=== PATIENT | male | born 1955 | race Caucasian/White ===

== ENCOUNTER 2017-11-19 11:06 | Emergency (ER) | payer OTHER ==
[~2017-11-19] VITALS: Ht 177.8 cm; Wt 126.0 kg
[~2017-11-19 11:06] MED LIST: ATOR10TA82 PO; BNC/40 PO; CLB/200 PO; FLX10 PO; OMEP20TA PO; RXC5 PO
[2017-11-19 11:10] VITALS: Ht 177.8 cm; Wt 126.0 kg
--- NOTE | 2017-11-19 11:32 | EMERGENCY ROOM VISIT NOTE ---
History Report prepared by Sung: Breonna Price Under the Supervision of: Dr. Hugo Lopez D.O. First contact with patient: 11:24 Chief Complaint: ABDOMINAL PAIN Stated Complaint: ABDOMINAL PAIN History of Present Illness The patient is a 62 year old male who presents to the Emergency Room with complaints of intermittent left sided abdominal pain beginning last night. The patient went to a walk in clinic this morning who referred him to come into the ED. His pain worsens with movement. The patient has a history of diverticulitis , hypertension, and diabetes. He denies any rectal bleeding, dark stools, fever , nausea, chest pain, shortness of breath, or vomiting. The patient is a smokeless tobacco user. Source of History: patient Onset: last night Position: abdomen Timing: intermittent Modifying Factors (Worsening): movement Associated Symptoms: + abdominal pain, No fevers, No chest pain, No SOB, No nausea, No vomiting Review of Systems See HPI for pertinent positives & negatives. A total of 10 systems reviewed and were otherwise negative. Past Medical & Surgical Medical Problems: (1) Hypertension (2) Kidney stones (3) Pneumonia Surgical Problems: (1) S/P hip replacement Family History Diabetes mellitus FH: heart disease FHx: cancer Hypertension Kidney disease Kidney stones Seizures Social History Smoking Status: Former Smoker Smokeless Tobacco Use: Yes Alcohol Use: none Drug Use: none Marital Status: Housing Status: lives with significant other Occupation Status: retired Current/Historical Medications Scheduled Ciprofloxacin Hcl (Cipro), 500 MG PO BID Cyanocobalamin (Cyanocobalamin), 1,000 MCG IM WK Ergocalciferol (Vitamin D 75383 Unit), 50,000 UNIT PO WK Metformin Hcl Er (Glucophage Er), 500 MG PO BID Metronidazole (Flagyl), 500 MG PO TID Ondasetron Odt (Zofran Odt), 4 MG SL Q6H Allergies Coded Allergies: Adhesives (Verified Allergy, Unknown, RED RASH, 11/19/17) NO KNOWN DRUG ALLERGIES (Verified Allergy, Unknown, NONE, 11/19/17) Physical Exam Vital Signs Date Time Temp Pulse Resp B/P (MAP) Pulse Ox O2 Delivery O2 Flow Rate FiO2 11/19/17 13:30 36.8 77 16 107/69 91 11/19/17 13:06 77 16 91 Room Air 11/19/17 13:01 107/69 11/19/17 12:50 70 20 102/78 90 Room Air 11/19/17 12:41 78 11/19/17 12:39 102/78 11/19/17 11:10 36.8 82 20 127/85 90 Room Air Physical Exam GENERAL: Patient is awake, alert, and in no acute distress. Patient is resting comfortably and showing no signs of anxiety EYES: The conjunctivae are clear. The pupils are round and reactive. EARS, NOSE, MOUTH AND THROAT: The nose is without any evidence of any deformity. Mucous membranes are moist tongue is midline NECK: The neck is nontender and supple. RESPIRATORY: Normal respiratory effort is noted there is no evidence of wheezing rhonchi or rales CARDIOVASCULAR: Regular rate and rhythm noted there no murmurs rubs or gallops normal S1 normal S2 GASTROINTESTINAL: Moderately distended with left lower quadrant tenderness to palpation, minimal guarding in left lower quadrant noted. BACK: No midline tenderness or or step-off noted range of motion in flexion extension as well as rotation no signs of muscle spasm noted MUSCULOSKELETAL/EXTREMITIES: There is no evidence of gross deformity full range of motion is noted in the hips and shoulders SKIN: There is no obvious evidence of any rash. There are no petechiae, pallor or cyanosis noted. NEUROLOGIC: Patient is awake alert and oriented x3 Medical Decision & Procedures ER Provider Diagnostic Interpretation: Radiology results as stated below per my review and radiologist interpretation: ABDOMEN AND PELVIS CT WITHOUT CONTRAST FINDINGS: There is an inflamed diverticulum at the proximal sigmoid colon with associated pericolonic fat stranding. This is consistent with acute diverticulitis. No perforation or abscess identified at this time. Left basilar linear densities likely represent subsegmental atelectasis. There is a left total hip arthroplasty. No evidence for bowel obstruction. Normal appendix. No retroperitoneal lymphadenopathy. The bladder is partially obscured by the artifact from the left hip prosthesis but is likely unremarkable. Hepatic steatosis. The spleen, adrenal glands, pancreas, gallbladder are unremarkable. Bilateral nephrolithiasis. No hydronephrosis. Mild bilateral perinephric edema. This is likely chronic. IMPRESSION: 1. Acute proximal sigmoid diverticulitis. No perforation or abscess at this time. 2. Bilateral nephrolithiasis. No ureteral stones. No hydronephrosis. 3. Additional findings as described above. Electronically signed by: Francis Enriquez M.D. Laboratory Results 11/19/17 12:07 Red Blood Count 4.74, Mean Corpuscular Volume 99.8, Mean Corpuscular Hemoglobin 33.1, Mean Corpuscular Hemoglobin Concent 33.2, Mean Platelet Volume 9.8, Neutrophils (%) (Auto) 71.5, Lymphocytes (%) (Auto) 15.8, Monocytes (%) (Auto) 8.6, Eosinophils (%) (Auto) 3.4, Basophils (%) (Auto) 0.4, Neutrophils # (Auto) 9.59, Lymphocytes # (Auto) 2.12, Monocytes # (Auto) 1.15, Eosinophils # (Auto) 0.45, Basophils # (Auto) 0.05 11/19/17 12:07 Test 11/19/17 12:07 11/19/17 12:10 White Blood Count 13.40 K/uL (4.8-10.8) Red Blood Count 4.74 M/uL (4.7-6.1) Hemoglobin 15.7 g/dL (14.0-18.0) Hematocrit 47.3 % (42-52) Mean Corpuscular Volume 99.8 fL (80-100) Mean Corpuscular Hemoglobin 33.1 pg (25-34) Mean Corpuscular Hemoglobin Concent 33.2 g/dl (32-36) Platelet Count 241 K/uL (130-400) Mean Platelet Volume 9.8 fL (7.4-10.4) Neutrophils (%) (Auto) 71.5 % Lymphocytes (%) (Auto) 15.8 % Monocytes (%) (Auto) 8.6 % Eosinophils (%) (Auto) 3.4 % Basophils (%) (Auto) 0.4 % Neutrophils # (Auto) 9.59 K/uL (1.4-6.5) Lymphocytes # (Auto) 2.12 K/uL (1.2-3.4) Monocytes # (Auto) 1.15 K/uL (0.11-0.59) Eosinophils # (Auto) 0.45 K/uL (0-0.5) Basophils # (Auto) 0.05 K/uL (0-0.2) RDW Standard Deviation 46.0 fL (36.4-46.3) RDW Coefficient of Variation 12.6 % (11.5-14.5) Immature Granulocyte % (Auto) 0.3 % Immature Granulocyte # (Auto) 0.04 K/uL (0.00-0.02) Anion Gap 5.0 mmol/L (3-11) Est Creatinine Clear Calc Drug Dose 82.2 ml/min Estimated GFR () 72.9 Estimated GFR (Non- 62.9 BUN/Creatinine Ratio 14.5 (10-20) Calcium Level 9.4 mg/dl (8.5-10.1) Total Bilirubin 0.6 mg/dl (0.2-1) Direct Bilirubin 0.2 mg/dl (0-0.2) Aspartate Amino Transf (AST/SGOT) 22 U/L (15-37) Alanine Aminotransferase (ALT/SGPT) 43 U/L (12-78) Alkaline Phosphatase 78 U/L (45-117) Total Protein 8.3 gm/dl (6.4-8.2) Albumin 3.8 gm/dl (3.4-5.0) Lipase 194 U/L (73-393) Urine Color YELLOW Urine Appearance CLEAR (CLEAR) Urine pH 5.0 (4.5-7.5) Urine Specific [place] 1.022 (1.000-1.030) Urine Protein NEG (NEG) Urine Glucose (UA) NEG (NEG) Urine Ketones NEG (NEG) Urine Occult Blood NEG (NEG) Urine Nitrite NEG (NEG) Urine Bilirubin NEG (NEG) Urine Urobilinogen NEG (NEG) Urine Leukocyte Esterase NEG (NEG) Laboratory results per my review. Medications Administered Medications (Trade) Dose Ordered Sig/Sixto Route Start Time Stop Time Status Last Admin Dose Admin Ciprofloxacin (Cipro Tab) 500 mg NOW STAT PO 11/19/17 12:44 11/19/17 12:45 DC 11/19/17 13:26 500 MG Metronidazole (Flagyl Tab) 500 mg NOW STAT PO 11/19/17 12:44 11/19/17 12:45 DC 11/19/17 13:26 500 MG ED Course 1125: The patient was evaluated in room C11B. A complete history and physical examination were performed. 1244: Ordered Flagyl Tab 500 mg PO, Cipro Tab 500 mg PO. 1322: Upon reevaluation, the patient is resting comfortably. I discussed the results and treatment plan with with patient. He verbalized agreement of the treatment plan. The patient was discharged home. Medical Decision Differential diagnosis: Etiologies such as appendicitis, diverticulitis, PUD, biliary pathology, UTI, pancreatitis, obstruction, mesenteric ischemia, aortic pathology, infections, inflammatory bowel disease, renal colic, as well as others were entertained. Nursing notes reviewed. The patient is a 62-year-old male who presented to the emergency department for evaluation of left-sided abdominal pain. The patient is a history of diverticular disease. He felt his condition was consistent with diverticulitis. He was treated with Cipro and Flagyl in the emergency department. I discussed the patient's laboratory radiographic studies with him. He was encouraged to follow-up with his primary care physician as well as possible for further evaluation but return to the emergency department immediately if symptoms change worsen or the need arises. Medication Reconcilliation Current Medication List: was personally reviewed by me Blood Pressure Screening Patient's blood pressure: Normal blood pressure Impression Primary Impression: LLQ abdominal pain Additional Impression: Diverticulitis Scribe Attestation The scribe's documentation has been prepared under my direction and personally reviewed by me in its entirety. I confirm that the note above accurately reflects all work, treatment, procedures, and medical decision making performed by me. Departure Information Dispostion Home / Self-Care Prescriptions Ondasetron Odt (ZOFRAN ODT) 4 Mg Tab 4 MG SL Q6H for Nausea, #15 TAB Prov: Hugo Lopez, DO 11/19/17 Metronidazole (FLAGYL) 500 Mg Tab 500 MG PO TID, #30 TAB Prov: Hugo Lopez, DO 11/19/17 Ciprofloxacin Hcl (CIPRO) 500 Mg Tab 500 MG PO BID, #20 TAB Prov: Hugo Lopez, DO 11/19/17 Referrals Sigrid Soto (PCP) Forms Call Back Authorization, HOME CARE DOCUMENTATION FORM, IMPORTANT VISIT INFORMATION Patient Instructions Diverticulosis Diverticulitis, My [facility] Additional Instructions Continue all medications as prescribed. Drink plenty clear liquids. Call your family to schedule a follow-up appointment. Return to the emergency department immediately if symptoms change worsen or the need arises. Problem Qualifiers
[2017-11-19] MEDS ORDERED: METF500T5 PO (12:05)
[2017-11-19] MEDS ORDERED: ERGO500037 PO (12:05)
[2017-11-19] MEDS ORDERED: CYNI1000 IM (12:05)
[2017-11-19] MEDS ORDERED: METRONIDAZOLE 250 MG TAB PO STA (12:44)
[2017-11-19] MEDS ORDERED: CIPROFLOXACIN 500 MG TAB PO STA (12:44)
[2017-11-19] MEDS ORDERED: ONDA4TAB10 SL (12:46)
[2017-11-19] MEDS ORDERED: CIPR-255 PO (12:46)
[2017-11-19] MEDS ORDERED: METR-162 PO (12:46)
[2017-11-19 12:47] LABS: BASO % 0.4 %; BASO ABS # 0.05 K/uL (0-0.2); EOS % 3.4 %; EOS ABS # 0.45 K/uL (0-0.5); HEMATOCRIT 47.3 % (42-52); HEMOGLOBIN 15.7 g/dL (14.0-18.0); IG# 0.04 K/uL (0.00-0.02); LYMPH % 15.8 %; LYMPH ABS # 2.12 K/uL (1.2-3.4); MEAN CELL VOLUME 99.8 fL (80-100); MEAN CORPUSCULAR HEMOGLOBIN 33.1 pg (25-34); MEAN CORPUSCULAR HGB CONC 33.2 g/dl (32-36); MEAN PLATELET VOLUME 9.8 fL (7.4-10.4); MONO % 8.6 %; MONO ABS # 1.15 K/uL (0.11-0.59); NEUT % 71.5 %; NEUT ABS # 9.59 K/uL (1.4-6.5); PLATELET COUNT 241 K/uL (130-400); RED CELL DISTRIBUTION WIDTH CV 12.6 % (11.5-14.5)
--- NOTE | 2017-11-19 12:52 | DIAGNOSTIC IMAGING REPORT ---
ABDOMEN AND PELVIS CT WITHOUT CONTRAST CT DOSE: 1355.43 mGycm HISTORY: Left-sided abdominal pain. TECHNIQUE: Multiaxial CT images of the abdomen and pelvis were performed without contrast. A dose lowering technique was utilized adhering to the principles of ALARA. COMPARISON STUDY: None. FINDINGS: There is an inflamed diverticulum at the proximal sigmoid colon with associated pericolonic fat stranding. This is consistent with acute diverticulitis. No perforation or abscess identified at this time. Left basilar linear densities likely represent subsegmental atelectasis. There is a left total hip arthroplasty. No evidence for bowel obstruction. Normal appendix. No retroperitoneal lymphadenopathy. The bladder is partially obscured by the artifact from the left hip prosthesis but is likely unremarkable. Hepatic steatosis. The spleen, adrenal glands, pancreas, gallbladder are unremarkable. Bilateral nephrolithiasis. No hydronephrosis. Mild bilateral perinephric edema. This is likely chronic. IMPRESSION: 1. Acute proximal sigmoid diverticulitis. No perforation or abscess at this time. 2. Bilateral nephrolithiasis. No ureteral stones. No hydronephrosis. 3. Additional findings as described above. Electronically signed by: Francis Enriquez M.D. 11/19/2017 12:50 PM Dictated Date/Time: 11/19/2017 12:44 PM
[2017-11-19 13:05] LABS: ALBUMIN 3.8 gm/dl (3.4-5.0); CALCIUM 9.4 mg/dl (8.5-10.1); CREATININE 1.21 mg/dl (0.60-1.40); POTASSIUM 4.3 mmol/L (3.5-5.1)
[2017-11-19 13:07] LABS: TOTAL PROTEIN 8.3 gm/dl (6.4-8.2)
[2017-11-19 13:30] VITALS: BP 107/69; PULSE 77; TEMP 36.8; O2SAT 91
== END 2017-11-19 13:31 | disposition home or self-care (01) ==
LOC: C.EDB 11:07 → C.EDC 13:31
DX: R10.32 Left lower quadrant pain (principal); K57.92 Diverticulitis of intestine, part unspecified, without perforation or abscess without bleeding; I10 Essential (primary) hypertension; Z83.3 Family history of diabetes mellitus; Z82.49 Family history of ischemic heart disease and other diseases of the circulatory system; Z82.0 Family history of epilepsy and other diseases of the nervous system; Z87.891 Personal history of nicotine dependence; N20.0 Calculus of kidney

== ENCOUNTER 2020-08-25 12:09 | Inpatient (IN) ==
[2020-08-25] MEDS ORDERED: DEXAMETHASONE SOD INJ 10 MG/ML VIAL IV ONE (12:33)
[2020-08-25] MEDS ORDERED: ACETAMINOPHEN 500 MG TAB PO STA (12:33)
[2020-08-25] MEDS ORDERED: SODIUM CHLORIDE 0.9% 1000ML 1,000 ML IV SCH ×2 (12:45→14:45)
[2020-08-25 13:07] LABS: Basophils # (auto) 0.03 K/uL (0-0.2); Basophils % (auto) 0.3 %; Eosinophils # (auto) 0.08 K/uL (0-0.5); Eosinophils % (auto) 0.8 %; Hematocrit (blood only) 42.1 % (42-52); Hemoglobin 14.5 g/dL (14.0-18.0); Immature Granulocytes # (auto) 0.04 K/uL (0.00-0.02); Immature Granulocytes % (auto) 0.4 %; Lymphocytes # (auto) 0.81 K/uL (1.2-3.4); Lymphocytes % (auto) 7.9 %; Mean Corpuscular Hgb Conc 34.4 g/dL (32-36); Mean Corpuscular Volume 95.7 fL (80-100); Mean Platelet Volume 8.9 fL (7.4-10.4); Monocytes # (auto) 0.59 K/uL (0.11-0.59); Monocytes % (auto) 5.7 %; Neutrophils # (auto) 8.76 K/uL (1.4-6.5); Neutrophils % (auto) 84.9 %; Platelet Count 358 K/uL (130-400); RDW Coefficient of Variation 12.9 % (11.5-14.5); RDW Standard Deviation 45.3 fL (36.4-46.3); White Blood Count 10.31 K/uL (4.8-10.8)
--- NOTE | 2020-08-25 13:11 | XRay Report ---
SINGLE VIEW CHEST CLINICAL HISTORY: Weakness. Covid. FINDINGS: An AP, portable, upright chest radiograph is compared to study dated 05/07/2015. The examina tion is degraded by portable technique, apical lordotic positioning, and patient rotation. Surgical c lips project over the right mid chest. The heart is top normal for projection. The pulmonary vasculat ure is noncongested. Interstitial thickening and patchy airspace opacities are present throughout bot h lungs. Linear atelectasis is seen at the left lung base. No large pleural effusion or pneumothorax is seen. The bony thorax is grossly intact. IMPRESSION: Interstitial thickening and patchy airspace opacities are seen throughout both lungs. Thi s is typical for an infectious/inflammatory pneumonitis. Clinical correlation will be required and ra diographic follow-up to resolution is recommended. ACT 112: Negative or not required by law. Electronically signed by: Sanket Malik M.D. 08/25/2020 1:10 PM
[2020-08-25 13:34] LABS: Alanine Aminotransferase 30 U/L (12-78); Albumin Level 2.7 gm/dl (3.4-5.0); BUN Creatinine Ratio 28.7 (10-20); Blood Urea Nitrogen 56 mg/dl (7-18); Calcium 9.3 mg/dl (8.5-10.1); Carbon Dioxide 17 mmol/L (21-32); Chloride 101 mmol/L (98-107); Creatinine Clr Calc Pharmacy 48.3 ml/min; Est GFR (African American) 40.6; Glucose 110 mg/dl (70-99); Sodium 133 mmol/L (136-145)
[2020-08-25 13:36] LABS: Albumin Globulin Ratio 0.5 (0.9-2); Alkaline Phosphatase 91 U/L (45-117); Bilirubin,Total 0.6 mg/dl (0.2-1); Globulin 5.6 gm/dl (2.5-4.0); Thyroid Stimulating Hormone 0.473 uIu/ml (0.300-4.500); Total Protein 8.3 gm/dl (6.4-8.2); Troponin I < 0.015 ng/ml (0-0.045)
[2020-08-25 14:27] LABS: Potassium 5.4 mmol/L (3.5-5.1)
[2020-08-25] MEDS ORDERED: DEXTROSE 50% 50 ML SYRINGE IV ONE (14:40)
[2020-08-25] MEDS ORDERED: NovoLIN-R INSULIN PER UNIT CHARGE IV STA (14:40)
[2020-08-25] MEDS ORDERED: ALBUTEROL 0.083% NEBU SOLN 3 ML VIAL NEB STA (14:51)
--- NOTE | 2020-08-25 15:34 | History & Physical Report ---
Date of Service August 25, 2020 Assessment & Plan (1) COVID-19: Dexamethasone 6mg IV daily Given 2 weeks out from original symptoms and presence of IAN I do not feel any treatment with remdesivir or convalescent plasma is warranted at this stage. Procalcitonin negative and no double worsening of illness or fever/chills to suggest bacterial PNA (2) Hypoxia: No respiratory failure. Aim O2 sats > 90% Secondary to COVID-19 viral PNA as above. (3) IAN (acute kidney injury): Continue on Bicarb drip Hold IAN UA pending. Suspect somewhat precipitated with NSAID use and dehydration from poor oral intake. Monitor with repeat BMP (4) Hypertension: Hold valsartan until BP stability established. (5) GERD (gastroesophageal reflux disease): Switch omeprazole for pantoprazole as per hospital formulary. (6) T2DM (type 2 diabetes mellitus): HbA1C with AM labs Hold metformin Sliding scale lantus 0-10 units depending on BP (unclear if he needs coverage for steroids at present) Novolog sliding scale for correction and carb ratio (7) Metabolic acidosis: Continue Bicarb drip. Can be discontinued once CO2 level normalized. Suspect secondary to IAN as above. (8) Hyperkalemia: Treated in ER as per HPI. Repeat BMP later this evening to monitor. (9) Hypercholesteremia: Continue his usual atorvastatin 10mg PO HS (10) DVT prophylaxis: Heparin 7500 units Q8H (increased dose due to COVID-19 diagnosis and increased BMI) Admission and Anticipated Discharge Date Admission Date: 08/25/2020 History of Present Illness Chief Complaint: COVID-19 Primary Care Provider: Sigrid Soto [place] is a 64-year-old male with known recent diagnosis of COVID-19 who presents to the ER 2 weeks of shortness of breath, fatigue, cough. He denies any ongoing fever and chills however his has been having ongoing fever and chills for the same amount of time. He thinks he contracted the virus from his PCP office in [place] as she is currently hospitalized with COVID- 19. He was tested approximately 1 week ago in [facility] and his whole family have contracted it including his , [id number] and grandson , [id number] (who live close by). The patient reports main reason for coming in today was ongoing fatigue, poor appetite and unable to cope at home. He likes lives in [facility] which is much closer to [facility] however he prefers coming here for his care and drove here today. He reports nothing is working for his generalized muscle aches and has been trying Aleve, Advil although not in excess with no improvement. He is a former smoker, no known COPD or prior WI/CVA. He denies any obstructive sleep apnea. He does not wear O2 at home. 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 Procalcitonin negative. Diagnosed with IAN with Cr 1.94 up from 1.21 at baseline from Oct, 2017. Bicarb 17 and on advice of nephrology ER have started Bicarb IV drip. He received 6mg IV dexamethasone to treat COVID-19. Insulin/dextrose given due to hyperkalemia. Noted to be hypoxic requiring 3L O2 to maintain sats > 90% therefore referred to medicine for admission. Allergies Allergy/AdvReac Type Severity Reaction Status Date / Time adhesive Allergy Unknown RED RASH Verified 08/25/20 13:37 No Known Drug Allergies Allergy Unknown NONE Verified 08/25/20 13:37 Home Medications Home Medications Medication Instructions Recorded Confirmed Type aspirin [Aspir-Low] 81 mg PO HS 08/25/20 08/25/20 History atorvastatin 10 mg PO HS 08/25/20 08/25/20 History metformin 500 mg PO BID 08/25/20 08/25/20 History omeprazole 20 mg PO HS 08/25/20 08/25/20 History valsartan 320 mg PO HS 08/25/20 08/25/20 History Past Med/Surg History Medical History GERD (gastroesophageal reflux disease) Hypercholesteremia Hypertension Kidney stones T2DM (type 2 diabetes mellitus) Surgical History History of arthroscopy of left knee History of hip replacement Left History of surgery traumatic shrapnel wound partial rib resection Social History Smoking Status: Former smoker Smoking End Date: 50 years ago; Hx Alcohol Use: Yes Hx Substance Use: No Preferred Language: 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 Beliefs That Will Affect Care: None Current Living Situation: Spouse Feels Safe at Home: Yes Safety Concerns: Feels Safe At This Time Assistive Devices: Oxygen - Continuous Review of Systems Review of Systems: All systems reviewed & are unremarkable except as noted in HPI & below Constitutional: + body aches, + fatigue and + weakness; no fever Respiratory: + cough and + chest congestion Gastrointestinal: + early satiety and + nausea; no abdominal pain, no h eartburn, no vomiting, no pain with swallowing, no dysphagia, no change in bowel habits, no constipation and no diarrhea/loose stools Physical Exam Constitutional: well developed and + obese; + not well nourished and no acute distress Eyes: PERRL, conjunctivae normal, anicteric sclerae ENMT: Ears: no external ear abnormality Nose: no external nose abnormality Mouth: + dry oral mucous membranes Neck: trachea midline, no thyromegaly Respiratory: normal respiratory effort, + cough (occasional wet sounding) and able to speak in complete sentences; no respiratory distress, no labored breathing, no retractions and does not use accessory muscles Auscultation: + rhonchi (b/l throughout); breath sounds present, no diminished lung sounds, no crackles and no wheezes Cardiovascular: RRR, no murmur, no edema Gastrointestinal (Abdomen): normal bowel sounds, soft, nontender, no hepatosplenomegaly Musculoskeletal: no cyanosis or clubbing, extremities motor strength 5/5 Skin: no rashes, warm and dry Neurologic: moves all extremities and awake; not confused Psychiatric: A+Ox3, euthymic affect Genitourinary: no CVA tenderness Lymphatic: no cervical or axillary lymphadenopathy Results & Data Results & Data ([facility]) Vital Signs (Past 12 Hours) Vital Signs Temp Pulse Resp BP Pulse Ox 08/25/20 13:30 85 21 105/62 91 08/25/20 13:06 37.3 C 08/25/20 13:00 90 24 107/67 91 08/25/20 12:52 95 08/25/20 12:30 92 H 24 110/67 91 08/25/20 12:23 93 H 22 88/58 L 88 L Diagnostic Findings SINGLE VIEW CHEST IMPRESSION: Interstitial thickening and patchy airspace opacities are seen throughout both lungs. This is typical for an infectious/inflammatory pneumonitis. Clinical correlation will be required and radiographic follow-up to resolution is recommended. ECG Indication: altered mental status Rate (beats per minute): 89 Rhythm: normal sinus Findings: no acute ischemic change Comparison ECG Date: from (May 07, 2015) Change: no significant change Code Status & VTE Plan Code Status DNR/DNI as discussed with the patient VTE Prophylaxis Plan VTE Prophylaxis will be ordered: Yes PG Care Time/CCT Total # of Minutes Spent Total Time Spent with Patient: Total time spent is greater than 50% in coordination of care (as documented) at patient's floor/unit and/or counseling patient: Coding Level of Care Code 95462 Initial Inpt Care Lvl 3 Diagnoses COVID-19 U07.1 Hypoxia R09.02 IAN (acute kidney injury) N17.9 Hypertension I10 GERD (gastroesophageal reflux disease) K21.9 T2DM (type 2 diabetes mellitus) E11.9 Metabolic acidosis E87.2 Hyperkalemia E87.5 Hypercholesteremia E78.00 DVT prophylaxis Z29.9
--- NOTE | 2020-08-25 15:39 | Emergency Department Note ---
Impression & Plan COVID-19, Acute respiratory failure with hypoxemia, IAN (acute kidney injury), Erythema intertrigo, Acute hyperkalemia ED Provider Note NAME: SARAH VILLEGAS AGE: 64 SEX: M : 1955 ARRIVES VIA: Walk-In INFORMANT: Patient, ED PROVIDER(S): Ramon Sol MD Chief Complaint: Shortness of breath HPI: Patient does present with worsening shortness of breath. The patient reportedly did have a history of positive Covid test approximately 8 days ago. The patient has had worsening shortness of breath. The patient's also has similar symptoms and did test positive for coronavirus as well. Patient does no t wear oxygen at home. The patient is a former smoker. The patient does have exertional dyspnea. The patient denies any lower extremity swelling or history of DVT or PE. The patient denies any current chest pains or nausea or vomiting. The patient has tried to help with the symptoms at home but he states that this is not helped and he feels as though he is gotten worse. ROS: See HPI for pertinent positives and negatives. A total of 10 systems were reviewed and otherwise negative. Past medical history: See below Surgical history: See below Social history: See below Physical Exam: GENERAL: Wearing a mask. NAD, non-toxic. EYE EXAM: Normal conjunctiva. PERRL, no anisocoria and EOM's grossly intact w/o pain. NECK: Supple, no nuchal rigidity, no adenopathy, non-tender. No signs of me ningismus. LUNGS: Clear to auscultation. Normal chest wall mechanics. HEART: NSR, no MRG. ABDOMEN: Abdomen soft, non-tender, normo-active bowel sounds, no masses, no rebound or guarding. BACK: No CVA TTP. SKIN: No rashes and no bruising. UPPER EXTREMITIES: Upper extremities are grossly normal. LOWER EXTREMITIES: Left-sided groin intertriginous rash that does not extend to the scrotum or the perineum. There is no crepitus compartments are soft, no drainage. Compartments are soft. Negative Homans' sign bilaterally. NEURO EXAM: A&O x3, cranial nerves II-XII grossly intact, normal speech, moves all 4 extremities on command w/o issue. Differential diagnoses: Reactive airway disease, pneumonia, pneumothorax, COPD, CHF, infections, cardiac ischemia, pulmonary embolism, musculoskeletal, coni rointestinal, as well as other pathologies. Course: Patient was seen and evaluated the bedside. Full history physical exam was performed. EKG: Indication: Shortness of breath Normal sinus rhythm, rate 89, normal intervals, normal axis, no ST changes or T WI. No significant change from comparison EKG May 07, 2015. Imaging Studies: Radiology results as stated below per my review in the radiologist's interpretation: SINGLE VIEW CHEST CLINICAL HISTORY: Weakness. Covid. FINDINGS: An AP, portable, upright chest radiograph is compared to study dated 05/07/2015. The examination is degraded by portable technique, apical lordotic positioning, and patient rotation. Surgical clips project over the right mid chest. The heart is top normal for projection. The pulmonary vasculature is noncongested. Interstitial thickening and patchy airspace opacities are present throughout both lungs. Linear atelectasis is seen at the left lung base. No large pleural effusion or pneumothorax is seen. The bony thorax is grossly intact. IMPRESSION: Interstitial thickening and patchy airspace opacities are seen throughout both lungs. This is typical for an infectious/inflammatory pneumonitis. Clinical correlation will be required and radiographic follow-up to resolution is recommended. ACT 112: Negative or not required by law. Electronically signed by: Sanket Malik M.D. 08/25/2020 1:10 PM Dictated: 08/25/20 1308 Transcribed: 08/25/20 1308 Cardiac monitoring: An order was placed for continuous cardiac monitoring. The monitor shows a rate of 85 with sinus rhythm. MDM: Patient did present with concern for shortness of breath with recent coronavirus positive testing. Blood work was obtained patient was given IV fluids. Patient has a normal white counts and platelet count. The patient's kidney function did show that he had some mild IAN with associated elevation in potassium at 5.4. Chest x-ray did show likely pneumonitis. Procalcitonin was added. Pro-Jhon is not elevated. Troponin is not detectable. Patient did receive dexamethasone. Given the patient's hyperkalemia the patient was ordered additional medications and I did speak with the on-call smoking pipe maker Dr. Acuña who did agree with bicarb to be given in water 150 mEq given at 250 an hour after his initial 1 L bolus. I did speak with the on-call hospitalist Dr. Harper MD and the patient was admitted to the medicine service. Critical Care: I have personally spent 80 minutes of critical care time in direct management of this patient. This includes bedside care, interpretation of diagnostic studies, and testing, discussion with consultants, patient, and family members, and other require inpatient management activities. This 80 minutes is in excess of all separately billable procedures. Past Med/Surg History Medical History (Updated 08/26/20 @ 06:50 by Maurisio Saleem MD) GERD (gastroesophageal reflux disease) Hypercholesteremia Hypertension Kidney stones T2DM (type 2 diabetes mellitus) Surgical History (Updated 08/25/20 @ 16:04 by Maurisio Saleem MD) History of arthroscopy of left knee History of hip replacement Left History of surgery traumatic shrapnel wound partial rib resection Social History Smoking Status: Former smoker Smoking End Date: 50 years ago; Hx Alcohol Use: Yes Hx Substance Use: No Preferred Language: Lao [employer] Required: No Beliefs That Will Affect Care: None Current Living Situation: Spouse Feels Safe at Home: Yes Safety Concerns: Feels Safe At This Time Assistive Devices: Glasses and Oxygen - Continuous Allergies Allergies Allergy/AdvReac Type Severity Reaction Status Date / Time adhesive Allergy Unknown RED RASH Verified 08/25/20 13:37 No Known Drug Allergies Allergy Unknown NONE Verified 08/25/20 13:37 Home Meds Home Medications Medication Instructions Recorded Confirmed aspirin [Aspir-Low] 81 mg PO HS 08/25/20 08/25/20 atorvastatin 10 mg PO HS 08/25/20 08/25/20 metformin 500 mg PO BID 08/25/20 08/25/20 omeprazole 20 mg PO HS 08/25/20 08/25/20 valsartan 320 mg PO HS 08/25/20 08/25/20 Results & Data (ED) Vital Signs Vital Signs - 24 hr 08/25/20 12:23 08/25/20 12:30 08/25/20 12:52 Temperature Temperature Source Pulse Rate 93 H 92 H Pulse Rate from SpO2 Sensor 92 H Pulse Rhythm Regular Respiratory Rate 22 24 Respiratory Pattern Regular Blood Pressure 88/58 L 110/67 Blood Pressure Mean 68 73 Pulse Oximetry 88 L 91 95 Oxygen Delivery Method Room Air Nasal Cannula Oxygen Flow Rate 3 3 Sepsis Recent Fever Within 48 Hours No Sepsis New/Unexplained Change in Mental Status No Sepsis Action Taken by Nursing Physician Notified 08/25/20 13:00 08/25/20 13:06 08/25/20 13:30 Temperature 37.3 C Temperature Source Oral Pulse Rate 90 85 Pulse Rate from SpO2 Sensor 89 85 Pulse Rhythm Respiratory Rate 24 21 Respiratory Pattern Blood Pressure 107/67 105/62 Blood Pressure Mean 71 70 Pulse Oximetry 91 91 Oxygen Delivery Method Oxygen Flow Rate 3 3 Sepsis Recent Fever Within 48 Hours Sepsis New/Unexplained Change in Mental Status Sepsis Action Taken by Nursing 08/25/20 16:05 Temperature Temperature Source Pulse Rate 83 Pulse Rate from SpO2 Sensor 83 Pulse Rhythm Respiratory Rate 30 H Respiratory Pattern Blood Pressure 95/74 L Blood Pressure Mean 83 Pulse Oximetry 91 Oxygen Delivery Method Oxygen Flow Rate Sepsis Recent Fever Within 48 Hours Sepsis New/Unexplained Change in Mental Status Sepsis Action Taken by Care Home Medications Current Medication List: was personally reviewed by me Laboratory Data Attestation: I reviewed the patient's lab results. Result diagrams: 08/26/20 05:33 08/26/20 05:33 Lab Results 08/25/20 08/25/20 08/25/20 Range/Units 12:41 12:41 12:41 WBC 10.31 (4.8-10.8) K/uL RBC 4.40 L (4.7-6.1) M/uL Hgb 14.5 (14.0-18.0) g/dL Hct 42.1 (42-52) % MCV 95.7 (80-100) fL MCH 33.0 (25-34) pg MCHC 34.4 (32-36) g/dL RDW Std Deviation 45.3 (36.4-46.3) fL RDW Coeff of Umm 12.9 (11.5-14.5) % Plt Count 358 (130-400) K/uL MPV 8.9 (7.4-10.4) fL Immature Gran % (Auto) 0.4 % Neut % (Auto) 84.9 % Lymph % (Auto) 7.9 % [place] % (Auto) 5.7 % Eos % (Auto) 0.8 % Baso % (Auto) 0.3 % Neut # (Auto) 8.76 H (1.4-6.5) K/uL Lymph # (Auto) 0.81 L (1.2-3.4) K/uL [place] # (Auto) 0.59 (0.11-0.59) K/uL Eos # (Auto) 0.08 (0-0.5) K/uL Baso # (Auto) 0.03 (0-0.2) K/uL Immature Gran # (Auto) 0.04 H (0.00-0.02) K/uL PT 11.0 (9.0-12.0) Seconds INR 1.0 (0.9-1.1) Sodium 133 L (136-145) mmol/L Potassium (3.5-5.1) mmol/L Chloride 101 (98-107) mmol/L Carbon Dioxide 17 L (21-32) mmol/L Anion Gap 15.0 H (3-11) BUN 56 H (7-18) mg/dl Creatinine 1.94 H (0.6-1.4) mg/dl Est Cr Clr Drug Dosing 48.3 ml/min Est GFR ( Amer) 40.6 Est GFR (Non-Af Amer) 35.0 BUN/Creatinine Ratio 28.7 H (10-20) Glucose 110 H (70-99) mg/dl Calcium 9.3 (8.5-10.1) mg/dl Magnesium (1.8-2.4) mg/dl Total Bilirubin 0.6 (0.2-1) mg/dl AST (15-37) U/L ALT 30 (12-78) U/L Alkaline Phosphatase 91 (45-117) U/L Troponin I < 0.015 (0-0.045) ng/ml Total Protein 8.3 H (6.4-8.2) gm/dl Albumin 2.7 L (3.4-5.0) gm/dl Globulin 5.6 H (2.5-4.0) gm/dl Albumin/Globulin Ratio 0.5 L (0.9-2) Procalcitonin (0-0.5) ng/ml TSH 0.473 (0.300-4.500) uIu/ml 08/25/20 08/25/20 Range/Units 13:51 16:15 WBC (4.8-10.8) K/uL RBC (4.7-6.1) M/uL Hgb (14.0-18.0) g/dL Hct (42-52) % MCV (80-100) fL MCH (25-34) pg MCHC (32-36) g/dL RDW Std Deviation (36.4-46.3) fL RDW Coeff of Umm (11.5-14.5) % Plt Count (130-400) K/uL MPV (7.4-10.4) fL Immature Gran % (Auto) % Neut % (Auto) % Lymph % (Auto) % [place] % (Auto) % Eos % (Auto) % Baso % (Auto) % Neut # (Auto) (1.4-6.5) K/uL Lymph # (Auto) (1.2-3.4) K/uL [place] # (Auto) (0.11-0.59) K/uL Eos # (Auto) (0-0.5) K/uL Baso # (Auto) (0-0.2) K/uL Immature Gran # (Auto) (0.00-0.02) K/uL PT (9.0-12.0) Seconds INR (0.9-1.1) Sodium (136-145) mmol/L Potassium 5.4 H (3.5-5.1) mmol/L Chloride (98-107) mmol/L Carbon Dioxide (21-32) mmol/L Anion Gap (3-11) BUN (7-18) mg/dl Creatinine (0.6-1.4) mg/dl Est Cr Clr Drug Dosing ml/min Est GFR ( Amer) Est GFR (Non-Af Amer) BUN/Creatinine Ratio (10-20) Glucose (70-99) mg/dl Calcium (8.5-10.1) mg/dl Magnesium 2.0 (1.8-2.4) mg/dl Total Bilirubin (0.2-1) mg/dl AST 32 (15-37) U/L ALT (12-78) U/L Alkaline Phosphatase (45-117) U/L Troponin I (0-0.045) ng/ml Total Protein (6.4-8.2) gm/dl Albumin (3.4-5.0) gm/dl Globulin (2.5-4.0) gm/dl Albumin/Globulin Ratio (0.9-2) Procalcitonin 0.16 (0-0.5) ng/ml TSH (0.300-4.500) uIu/ml Administered Medications Aspirin (Aspirin 81 Mg Ectab) 81 mg PO HS SHEILA Stop: 09/24/20 20:59 Last Admin: 08/25/20 22:31 Dose: 81 mg Documented by: [id number] Atorvastatin Calcium (Atorvastatin 10 Mg Tab) 10 mg PO HS SHEILA Stop: 09/24/20 20:59 Last Admin: 08/25/20 22:31 Dose: 10 mg Documented by: [id number] Heparin Sodium (Porcine) (Heparin Sod 5,000 Unit/0.5 Ml Vial) 7,500 units SQ Q8 SHEILA Stop: 09/24/20 21:59 Last Admin: 08/26/20 04:59 Dose: 7,500 units Documented by: [id number] Cosigned by: [id number] Admin: 08/25/20 22:26 Dose: 7,500 units Documented by: [id number] Cosigned by: [id number] Insulin Aspart (Insulin Aspart 100 Units/Ml 3 Ml Pen) 0 units SC ACHS SHEILA Stop: 09/24/20 19:28 Last Admin: 08/25/20 23:22 Dose: Not Given Documented by: [id number] Cosigned by: [id number] Admin: 08/25/20 22:24 Dose: 1 units Documented by: [id number] Cosigned by: [id number] Insulin Glargine (Insulin Glargine Solostar 100 Units/Ml 3 Ml Pen) 0 units SC BID SHEILA; Protocol Stop: 09/24/20 20:59 Last Admin: 08/25/20 22:25 Dose: 10 units Documented by: [id number] Cosigned by: [id number] Pantoprazole Sodium (Pantoprazole 40 Mg Tab) 40 mg PO HS SHEILA Stop: 09/24/20 20:59 Last Admin: 08/25/20 22:31 Dose: 40 mg Documented by: [id number] Discontinued Medications Acetaminophen (Acetaminophen 500 Mg Tab) 1,000 mg PO NOW STA Stop: 08/25/20 12:34 Last Admin: 08/25/20 12:50 Dose: 1,000 mg Documented by: [id number] Albuterol (Albuterol 0.083% Nebu Soln 3 Ml Vial) 10 mg NEB NOW STA Stop: 08/25/20 14:52 Last Admin: 08/26/20 07:32 Dose: Not Given Documented by: [id number] Dexamethasone (Dexamethasone Sod Inj 10 Mg/Ml Vial) 6 mg IV NOW ONE Stop: 08/25/20 12:34 Last Admin: 08/25/20 12:50 Dose: 6 mg Documented by: [id number] Dextrose (Dextrose 50% 50 Ml Syringe) 50 ml IV NOW ONE Stop: 08/25/20 14:41 Last Admin: 08/25/20 16:05 Dose: 50 ml Documented by: [id number] Sodium Chloride (Nss 1000ml) 1,000 mls @ 999 mls/hr IV .Q1H1M SHEILA Stop: 08/25/20 13:45 Last Infusion: 08/25/20 14:05 Dose: 0 mls/hr Documented by: [id number] Admin: 08/25/20 12:50 Dose: 999 mls/hr Documented by: [id number] Sodium Chloride (Nss 1000ml) 1,000 mls @ 125 mls/hr IV .Q8H SHEILA Stop: 09/24/20 14:44 Last Admin: 08/25/20 14:53 Dose: Not Given Documented by: [id number] Sodium Bicarbonate 150 meq/ (Sterile Water) 1,150 mls @ 250 mls/hr IV .Q4H36M SHEILA Stop: 09/24/20 14:59 Last Infusion: 08/26/20 07:31 Dose: 0 mls/hr Documented by: [id number] Admin: 08/26/20 04:57 Dose: 250 mls/hr Documented by: [id number] Infusion: 08/26/20 04:57 Dose: 250 mls/hr Documented by: [id number] Admin: 08/26/20 01:29 EDT Dose: 250 mls/hr Documented by: [id number] Infusion: 08/26/20 00:26 Dose: 250 mls/hr Documented by: [id number] Admin: 08/25/20 19:50 Dose: 250 mls/hr Documented by: [id number] Infusion: 08/25/20 19:50 Dose: 250 mls/hr Documented by: [id number] Admin: 08/25/20 16:10 Dose: 250 mls/hr Documented by: [id number] Insulin Human Regular (Novolin-R Insulin Per Unit Charge) 10 units IV NOW STA Stop: 08/25/20 14:41 Last Admin: 08/25/20 16:05 Dose: 10 units Documented by: [id number] Cosigned by: [id number] Discharge Plan Visit Data Chief Complaint: Flu Like Symptoms Stated Complaint: POSITIVE COVID-19, SHORT OF BREATH, FEVERS ED Provider: Ramon Sol Discharge Problem: COVID-19, Acute respiratory failure with hypoxemia, IAN (acute kidney injury), Erythema intertrigo, Acute hyperkalemia Patient Disposition: Admitted As Inpatient Discharge Instructions Interventions: ED Discharge Assessment Last Done: 08/25/20 18:23
[2020-08-25] MEDS: SODIUM BICARBONATE 8.4% 150 MEQ in WATER, STERILE 1,000 ML IV SCH ×2 (16:10→19:50)
--- NOTE | 2020-08-25 17:54 | Electrocardiogram Report ---
Test Reason : Blood Pressure : / mmHG Vent. Rate : 089 BPM Atrial Rate : 089 BPM P-R Int : 152 ms QRS Dur : 086 ms QT Int : 346 ms P-R-T Axes : 025 -11 037 degrees QTc Int : 420 ms Poor data quality, interpretation may be adversely affected Normal sinus rhythm Normal ECG When compared with ECG of 07-MAY-2015 14:08, No significant change was found Confirmed by Giovani Jones ([id number]) on 08/25/2020 5:54:29 PM Referred By: REFERRED SELF Confirmed By:Giovani Jones
[2020-08-25] MEDS ORDERED: ACETAMINOPHEN 325 MG TAB PO PRN (19:29)
[2020-08-25] MEDS ORDERED: GLUCOSE 10 TABS/TUBE PO PRN (19:29)
[2020-08-25] MEDS ORDERED: CARBOHYDRATES FOR HYPOGLYCEMIA PO PRN (19:29)
[2020-08-25] MEDS ORDERED: GLUCOSE 40% GEL 15 GM TUBE PO PRN (19:29)
[2020-08-25] MEDS ORDERED: DEXTROSE 50% 50 ML SYRINGE IV PRN (19:29)
[2020-08-25] MEDS ORDERED: ONDANSETRON INJ 2 MG/ML 2 ML VIAL IV PRN (19:29)
[2020-08-25] MEDS ORDERED: GLUCAGON FOR INJ 1 MG VIAL SQ PRN (19:29)
[2020-08-25] MEDS ORDERED: POLYETHYLENE (MIRALAX) 17 GM PACK PO PRN (19:29)
[2020-08-25 21:40] LABS: BUN Creatinine Ratio 31.9 (10-20); Calcium 8.7 mg/dl (8.5-10.1); Creatinine Clr Calc Pharmacy 57.4 ml/min; Est GFR (African American) 51.7; Est GFR (Non-African American) 44.6; Potassium 4.6 mmol/L (3.5-5.1)
[2020-08-25] MEDS: INSULIN ASPART 100 UNITS/ML 3 ML PEN SC SCH ×2 (22:24→23:22)
[2020-08-25] MEDS: INSULIN GLARGINE SOLOSTAR 100 UNITS/ML 3 ML PEN SC SCH (22:25)
[2020-08-25] MEDS: HEPARIN SOD 5,000 UNIT/0.5 ML VIAL SQ SCH (22:26)
[2020-08-25] MEDS: ATORVASTATIN 10 MG TAB PO SCH (22:31)
[2020-08-25] MEDS: PANTOprazole 40 MG TAB PO SCH (22:31)
[2020-08-25] MEDS: ASPIRIN 81 MG ECTAB PO SCH (22:31)
[2020-08-26] MEDS ORDERED: MICONAZOLE NITRATE POWDER 43 GM EXT PRN ×2 (00:42→00:43)
[2020-08-26] MEDS: SODIUM BICARBONATE 8.4% 150 MEQ in WATER, STERILE 1,000 ML IV SCH ×2 (01:29→04:57)
[2020-08-26] MEDS: HEPARIN SOD 5,000 UNIT/0.5 ML VIAL SQ SCH ×3 (04:59→21:59)
[2020-08-26 05:49] LABS: Basophils # (auto) 0.01 K/uL (0-0.2); Basophils % (auto) 0.1 %; Hematocrit (blood only) 35.8 % (42-52); Hemoglobin 12.5 g/dL (14.0-18.0); Immature Granulocytes # (auto) 0.03 K/uL (0.00-0.02); Immature Granulocytes % (auto) 0.4 %; Lymphocytes # (auto) 0.84 K/uL (1.2-3.4); Lymphocytes % (auto) 11.7 %; Mean Corpuscular Hemoglobin 32.6 pg (25-34); Mean Corpuscular Hgb Conc 34.9 g/dL (32-36); Mean Corpuscular Volume 93.2 fL (80-100); Mean Platelet Volume 8.6 fL (7.4-10.4); Monocytes # (auto) 0.46 K/uL (0.11-0.59); Monocytes % (auto) 6.4 %; Neutrophils # (auto) 5.84 K/uL (1.4-6.5); Neutrophils % (auto) 81.4 %; Platelet Count 383 K/uL (130-400); RDW Coefficient of Variation 12.5 % (11.5-14.5); RDW Standard Deviation 42.3 fL (36.4-46.3); Red Blood Count 3.84 M/uL (4.7-6.1); White Blood Count 7.18 K/uL (4.8-10.8)
[2020-08-26 06:26] LABS: Alanine Aminotransferase 30 U/L (12-78); Albumin Level 2.4 gm/dl (3.4-5.0); Aspartate Aminotransferase 32 U/L (15-37); BUN Creatinine Ratio 35.9 (10-20); Blood Urea Nitrogen 42 mg/dl (7-18); Calcium 8.4 mg/dl (8.5-10.1); Carbon Dioxide 27 mmol/L (21-32); Chloride 99 mmol/L (98-107); Creatinine Clr Calc Pharmacy 78.6 ml/min; Est GFR (African American) 75.6; Est GFR (Non-African American) 65.3; Glucose 143 mg/dl (70-99); Potassium 4.3 mmol/L (3.5-5.1); Sodium 135 mmol/L (136-145)
[2020-08-26 06:28] LABS: D Dimer 570 ug/L FEU (0-500)
[2020-08-26 06:37] LABS: Albumin Globulin Ratio 0.5 (0.9-2); Alkaline Phosphatase 80 U/L (45-117); Bilirubin,Total 0.6 mg/dl (0.2-1); Creatine Kinase 196 U/L (39-308); Ferritin 576.1 ng/ml (8-388); Globulin 4.8 gm/dl (2.5-4.0); Total Protein 7.2 gm/dl (6.4-8.2); Troponin I < 0.015 ng/ml (0-0.045)
--- NOTE | 2020-08-26 08:01 | Hospitalist Progress Note ---
Date of Service August 26, 2020 Assessment & Plan (1) COVID-19: Dexamethasone 6mg IV daily for 10 days Given 2 weeks out from original symptoms, initial ian made treatment with remdesivir or convalescent plasma not warranted at admission, now renal function has improved PT does have some increased oxygen, but clinically he looks really good, will not push plasma unless he is symptomatic or cxr progresses Procalcitonin negative making secondary bacterial infection less likely (2) Hypoxia: acute hypoxic respiratory failure, with some tachypnea Aim O2 sats > 89% Secondary to COVID-19 viral PNA (3) IAN (acute kidney injury): Bicarb drip discontinued, renal function improved UA negative Suspect precipitated from NSAID use and dehydration from poor oral intake. (4) Hypertension: typically takes valsartan, initially held due to renal injury (5) GERD (gastroesophageal reflux disease): Switch omeprazole for pantoprazole as per hospital formulary. (6) T2DM (type 2 diabetes mellitus): HbA1C pending Holding metformin Sliding scale lantus 0-10 units depending on Bsg (unclear if he needs coverage for steroids at present) Novolog sliding scale for correction and carb ratio (7) Metabolic acidosis: resolved (8) Hyperkalemia: resolved (9) Hypercholesteremia: Continue his usual atorvastatin 10mg PO HS ' (10) DVT prophylaxis: Heparin 7500 units Q8H (increased dose due to COVID-19 diagnosis and increased BMI) Admission and Anticipated Discharge Date Admission Date: August 25, 2020 Subjective pt states he feels no significant distress from his COVID infection, he is on 7 L oxygen via oxymask but frequently takes this off as he states it makes his lungs hurt, since he remains clinically stable and he does not seem to be progressing will hold no convalescent plasma at this time. will continue decadron Review of Systems Review of Systems: Very little distress or fatigue no headache, blurry or double vision no speech or swallowing issues no chest pain, pressure or palpitations nmild shortness of breath, non productive cough or wheezes no abdominal pain, nausea or vomiting, diarrhea or constipation no dysuria, hematuria or frequency no focal joint pain or swelling no back pain, CVA tenderness or radicular pain no bruising, bleeding or rashes no focal signs of weakness or numbness or altered sensation no complaints of anxiety or depression. Physical Exam Physical Exam: The patient appeared well nourished and normally developed. Vital signs as documented. Head exam is normocephalic atraumatic no scleral icterus Neck is without JVD, thyromegaly, or carotid bruits. Lungs are minor rales bibasilar which clear with cough. no focal loss of breath sounds Cardiac exam, Rhythm is regular.. No murmurs, rubs or gallops. Abdominal exam reveals normal bowel sounds, soft non tender, no masses Extremities are nonedematous and both pedal pulses are present Neurologic exam is alert and oriented, no focal loss of strength or sensation Skin is without bruises or rashes Psychologically is without concerns for anxiety or depression. Results & Data Results & Data ([facility]) Vital Signs (Past 12 Hours) Vital Signs Temp Pulse Pulse Resp BP BP Pulse Ox 08/26/20 07:24 73 08/26/20 04:11 98.2 F 80 18 116/69 92 08/26/20 01:26 EST 72 20 93 08/26/20 01:43 EDT 91 08/26/20 01:25 EDT 88 L 08/26/20 01:19 EDT 98.2 F 85 20 114/66 86 L 08/26/20 00:17 80 08/25/20 23:52 78 PG Care Time/CCT Total # of Minutes Spent Total Time Spent with Patient: Total time spent is greater than 50% in coordination of care (as documented) at patient's floor/unit and/or counseling patient: Coding Level of Care Code 11236 Subseq Hosp Care Lvl 3 Diagnoses COVID-19 U07.1 Hypoxia R09.02 IAN (acute kidney injury) N17.9 Hypertension I10 GERD (gastroesophageal reflux disease) K21.9 T2DM (type 2 diabetes mellitus) E11.9 Metabolic acidosis E87.2 Hyperkalemia E87.5 Hypercholesteremia E78.00 DVT prophylaxis Z29.9
[2020-08-26] MEDS ORDERED: DEXAMETHASONE SOD INJ 10 MG/ML VIAL IV SCH (09:00)
[2020-08-26] MEDS: DEXAMETHASONE SOD PHOSPHATE 6 MG in SYRINGE 0 ML IV SCH (09:28)
[2020-08-26] MEDS: INSULIN ASPART 100 UNITS/ML 3 ML PEN SC SCH ×4 (09:54→22:02)
[2020-08-26] MEDS: INSULIN GLARGINE SOLOSTAR 100 UNITS/ML 3 ML PEN SC SCH ×2 (09:55→22:01)
[2020-08-26] MEDS: ASPIRIN 81 MG ECTAB PO SCH (21:53)
[2020-08-26] MEDS: ATORVASTATIN 10 MG TAB PO SCH (21:54)
[2020-08-26] MEDS: PANTOprazole 40 MG TAB PO SCH (21:54)
[2020-08-27 05:45] LABS: Estimated Average Glucose 148 mg/dl; Hemoglobin A1C 6.8 % (4.5-5.6)
[2020-08-27] MEDS: HEPARIN SOD 5,000 UNIT/0.5 ML VIAL SQ SCH ×2 (06:12→15:16)
[2020-08-27] MEDS: DEXAMETHASONE SOD PHOSPHATE 6 MG in SYRINGE 0 ML IV SCH (08:45)
[2020-08-27] MEDS: INSULIN GLARGINE SOLOSTAR 100 UNITS/ML 3 ML PEN SC SCH (08:55)
[2020-08-27] MEDS: INSULIN ASPART 100 UNITS/ML 3 ML PEN SC SCH ×2 (08:55→13:07)
--- NOTE | 2020-08-27 16:31 | Discharge Summary ---
Date of Service August 27, 2020 Admission HPI Per Admitting Provider Migue Grande is a 64-year-old male with known recent diagnosis of COVID-19 who presents to the ER 2 weeks of shortness of breath, fatigue, cough. He denies any ongoing fever and chills however his has been having ongoing fever and chills for the same amount of time. He thinks he contracted the virus from his PCP office in [place] as she is currently hospitalized with COVID- 19. He was tested approximately 1 week ago in [facility] and his whole family have contracted it including his , [id number] and grandson , [id number] (who live close by). The patient reports main reason for coming in today was ongoing fatigue, poor appetite and unable to cope at home. He likes lives in [facility] which is much closer to [facility] however he prefers coming here for his care and drove here today. He reports nothing is working for his generalized muscle aches and has been trying Aleve, Advil although not in excess with no improvement. He is a former smoker, no known COPD or prior [place]/CVA. He denies any obstructive sleep apnea. He does not wear O2 at home. 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 Procalcitonin negative. Diagnosed with IAN with Cr 1.94 up from 1.21 at baseline from Oct, 2017. Bicarb 17 and on advice of nephrology ER have started Bicarb IV drip. He received 6mg IV dexamethasone to treat COVID-19. Insulin/dextrose given due to hyperkalemia. Noted to be hypoxic requiring 3L O2 to maintain sats > 90% therefore referred to medicine for admission. Principal Diagnosis covid pneumonia Discharge Exam The patient appeared well Vital signs as documented. Lungs are with scant bibasilar wheezes Cardiac exam, Rhythm is regular.. No murmurs, rubs or gallops. Abdominal exam reveals normal bowel sounds, soft non tender, no masses Extremities are nonedematous and both pedal pulses are normal. Neurologic exam is alert and oriented, no focal loss of strength or sensation Skin is without bruises or rashes Psychologically is without concerns for anxiety or depression. Discharge Data Allergies Allergy/AdvReac Type Severity Reaction Status Date / Time adhesive Allergy Unknown RED RASH Verified 08/25/20 13:37 No Known Drug Allergies Allergy Unknown NONE Verified 08/25/20 13:37 Consultations 08/25/20 14:39 ED Decision to Admit Stat Hospital Course (1) COVID-19: Dexamethasone 6mg daily for 10 days Given 2 weeks out from original symptoms, initial ian made treatment with remdesivir or convalescent plasma not warranted at admission, now renal function has improved PT clinically he looks really good, and has been with decreasing oxygen demands. PT despirately wants to go home and will go home on oxygen with close outpt follow up Procalcitonin negative making secondary bacterial infection less likely (2) Hypoxia: acute hypoxic respiratory failure, with some tachypnea, improving Aim O2 sats > 89% Secondary to COVID-19 viral PNA (3) IAN (acute kidney injury): initially on Bicarb drip, now discontinued, renal function improved UA negative Suspect precipitated from NSAID use and dehydration from poor oral intake. (4) Hypertension: typically takes valsartan,will be held at discharge (5) GERD (gastroesophageal reflux disease): Switch omeprazole for pantoprazole as per hospital formulary. (6) T2DM (type 2 diabetes mellitus): HbA1C 6.8 resume metformin (7) Metabolic acidosis: resolved (8) Hyperkalemia: resolved (9) Hypercholesteremia: Continue his usual atorvastatin 10mg PO HS Total Time Total Time Spent Total Time Spent (In Minutes): It required greater than 30 minutes to prepare this patient for discharge Discharge Plan Discharge Items Patient Disposition: Home - Home Health Services Reason For Visit: COVID-19, IAN Discharge Diagnosis: covid pneumonia, non specific respiratory failure Activity: Per Instructions section Activity Comment: no intentional exercise for 2 weeks then as instructed by primary care Non-emergency contact: Primary Care Provider Call non-emergency contact if: you have any medication questions and your symptoms worsen Follow-up/Referrals: Sigrid Soto [Primary Care Provider] - 09/07/20 1:30 pm Diet: Regular Addtl Attending Provider Instructions: please take some over the counter zinc and vitamin D until you feel back to your typical self wear the home oxygen until your doctor instructs you not to wear it, that would be if you are able to walk for 6 minutes off oxygen and your saturations on your finger pulse oxymeter stays above 89% always return if you feel worse especially if you are more short of breath or have a fever Coronavirus disease 2019 (COVID-19) is a virus that causes a respiratory illness. It is caused by a coronavirus called 2019 novel coronavirus (2019- nCoV). There are many types of coronavirus. Coronaviruses are a very common cause of bronchitis. They may sometimes cause lung infection(pneumonia). Symptoms can range from mild to severe respiratory illness. These viruses are also foundin some animals. COVID-19 was first found in people in [facility], in late 2018. In 2020, several cases of COVID-19 have been confirmed in the [place] Public health officials are working to find the source. How the virus spreads is not yet fully known. It may be spread through droplets of fluid that a person coughs or sneezes into the air. It may be spread if you touch a surface with virus on it, such as a handle or object, and then touch your mouth. What are the symptoms of COVID-19? Some people have no symptoms or mild symptoms. Symptoms may appear 2 to 14 days after contact with the virus. Symptoms can include: Fever Coughing Trouble breathing What are possible complications from COVID-19? In many cases, this virus can cause infection (pneumonia) in both lungs. In some cases, this can cause . How is COVID-19 diagnosed? Your healthcare provider will ask about your symptoms. He or she will also ask about your recent travel and contact with sick people. Testing for the virus is only done through the CDC. If yourhealthcare provider thinks you may have COVID- 19, he or she will work with your local health department and the CDC on testing. Follow all instructions from your healthcare provider. COVID-19 is diagnosed by: Nasal and throat swab. A cotton-tipped swab is wiped inside your nose or throat. This is done to check for viruses in your nasal mucus. Sputum culture. A small sample of mucus coughed from your lungs (sputum) is collected if you have a cough. It is checked for the virus. How is COVID-19 treated? There is currently no medicine to treat the virus. Treatment is done to help your body while it fights the virus. This is known as supportive care. Supportive care may include: Pain medicine. These include acetaminophen and ibuprofen. They are used to help ease pain and reduce fever. Bed rest. This helps your body fight the illness. For severe illness, you may need to stay in the hospital. Care during severe illness may include: IV (intravenous) fluids.These are given through a vein to help keep your body hydrated. Oxygen. Supplemental oxygen or ventilation with a breathing machine (ventilator) may be given. This is done to keep enough oxygen in your body. Are you at risk for COVID-19? If youve been to a place where people have been sick with this virus, you are at risk for infection. You are at risk if you: Recently traveled to an affected area Had contact with a sick person who recently traveled to this area Had contact with a person who was diagnosed with COVID-19 How can COVID-19 be prevented? There is no vaccine yet. The best prevention is to not have contact with the virus. The CDC advises that people should not travel to areas where there are COVID-19 outbreaks right now for any reason that is not urgent. To help prevent spreading the infection, wash your hands often, or use an alcohol-basedhand hardboard panel printer. If you are in an area with COVID-19: Wash your hands often. Or use an alcohol-based hand hardboard panel printer often. Only touch your eyes, nose, or mouth with clean hands. Dont have contact with people who are sick. Follow local instructions about being in public. For example, you may be told to not use public transport for a period of time. Stay away from markets that have live or animals. Wash your hands after touching any animals. Don't touch animals that may be sick. Dont share eating or drinking tools with sick people. Dont kiss someone who is sick. Clean surfaces often with disinfectant. If you were in an area with COVID-19 in the last 14 days: Call your healthcare provider. He or she can talk with local health staff to see what action may be needed. Follow all instructions from your provider. Take your temperature every morning and evening for at least 14 days. This is to check for fever. Keep a record of the readings. Keep watch for symptoms of the virus. Tell your provider right away if you have symptoms. If you were in an area with COVID-19 and have a fever or other symptoms: Dont panic. Keep in mind that other illnesses can cause similar symptoms. Stay away from work, school, and public places. Limit physical contact with family members. Don't kiss anyone or share eating or drinking utensils. Clean surfaces you touch with disinfectant. This is to help prevent the virus from spreading. Call your healthcare provider. Explain that you have been exposed to COVID-19 and have symptoms. Do this before going to any hospital. Wait for instructions. Keep in mind that healthcare staff may wear protective equipment such as masks, gowns, gloves, and eye protection. You may be put in a separate room. This is to prevent the possible virus from spreading. Tell the healthcare staff about recent travel. This includes local travel on public transport. Staff may need to find other people you have been in contact with. Follow all instructions the healthcare staff give you. If you have been diagnosed with COVID-19 Follow all instructions from your healthcare provider. Dont leave your home, except to get medical care. Call your healthcare providers office before going. They can prepare and give you instructions. This will help prevent the virus from spreading. Dont go to work, school, or public areas. Dont use public transport or taxis. Stay away from other people in your home. Have them wear face masks around you. Dont share household items or food. Wear a face mask if you can. This includes at home or in a medical facility. Cover your face with a tissue when you cough or sneeze. Throw the tissue away. Wash your hands. Wash your hands often. Caregivers should: Follow all instructions from healthcare staff. Wear a face mask and protective clothing as advised. Wash hands often. Keep track of the sick persons symptoms. Clean surfaces, fabrics, and laundry thoroughly. Keep other people away from the sick person. When to call your healthcare provider Call your healthcare provider: If youve recently traveled and have symptoms If you have been diagnosed with COVID-19 and your symptoms are worse To learn more To find out more about COVID-19, visit the CDC website at www.cdc.gov/coronavirus/2019-ncov/index.html. [employer]. [address] [place] [address], [place] [address]. All rights reserved. This information is not intended as a substitute for professional medical care. Always follow your healthcare professional's instructions. This information has been adapted from [employer] Pending Studies at Discharge: No Stand-Alone Forms: [facility], Smoking Cessation Medications and DC Order Prescriptions: New dexamethasone [Decadron] 6 mg tablet 6 mg PO DAILY Qty: 8 RF: 0 zinc 50 mg tablet 50 mg PO DAILY Qty: 14 RF: 0 famotidine [Pepcid] 20 mg tablet 20 mg PO BID 28 Days Qty: 56 RF: 0 (DME) Oxygen Home Liters Per Minute 4 ea .Route DAILY Qty: 1 RF: 0 Continued atorvastatin 10 mg tablet 10 mg PO HS RF: 0 aspirin 81 mg Tablet,Delayed Release (Dr/Ec) 81 mg PO HS RF: 0 omeprazole 20 mg capsule,delayed release(DR/EC) 20 mg PO HS RF: 0 metformin 500 mg tablet extended release 24 hr 500 mg PO BID RF: 0 Discontinued valsartan 320 mg tablet 320 mg PO HS RF: 0 Discharge Orders: Discharge Order (Routine); Ordered 08/27/20 Ordered By: Nixon Edge/Other Patient Handouts: Managing Type 2 Diabetes Admission Data Admit Date/Time: 08/25/20 16:26 Attending Provider: Nixon Machado Admit Provider: Maurisio Saleem Primary Care Provider: Sigrid Soto Other Providers: Maurisio Saleem Other Interventions: Discharge Summary Assessment (RN) Last Done: 08/27/20 15:26 Coding Level of Care Code D/C Day Management >30 mins Diagnoses COVID-19 U07.1 Hypoxia R09.02 IAN (acute kidney injury) N17.9 Hypertension I10 GERD (gastroesophageal reflux disease) K21.9 T2DM (type 2 diabetes mellitus) E11.9 Metabolic acidosis E87.2 Hyperkalemia E87.5 Hypercholesteremia E78.00
== END 2020-08-27 16:45 | disposition home or self-care (01) | DRG 177 ==
LOC: ED 12:09 → SUATTDRO 16:26 → 2N 16:26